=== PATIENT | female | born 1940 | race Caucasian/White ===

== ENCOUNTER → 2016-10-29 | Outpatient (CLI) | payer OTHER, MEDICARE | LOC: FIMAGING 11:41 | PROVIDERS: ATTEND Physician Assistant Surgical | DX: M51.36 Other intervertebral disc degeneration, lumbar region (principal); Z98.1 Arthrodesis status ==

== ENCOUNTER 2017-04-14 16:03 | Observation (INO) | payer OTHER, MEDICARE ==
--- NOTE | 2017-04-14 16:39 | EDPHY ---
H & P Stated Complaint: Epiastric pain/pressure earlier today,resolved now. BP elevated Time Seen by Provider: 04/14/17 16:39 HPI/ROS: HPI: This is a 77-year-old female presents with Chief Complaint: Epigastric pain/pressure earlier today,resolved now. BP elevated Location: Epigastric Quality: Burning pain Duration: Lasted approximately 2-3 hours Signs and Symptoms: No fever, no cough, no shortness of breath, no wheezing, no palpitations, no lower extremity swelling,+ indigestion, no radiation of pain Timing: Acute onset, self resolved without intervention Severity: Moderate Context: Patient has a history of GERD for which she takes Pepcid twice daily for the last 5 years and celiac disease presents with sudden onset of epigastric burning pain that is nonradiating in nature that lasted approximately 2-3 hours and resolved after taking Tums. Symptoms accompanied by nausea. She ate approximately around 12 30 lunch consisting of a salad which is not abnormal for her. Patient had EGD greater than 10 years ago. Patient reports no prior cardiac history. She does not take aspirin daily. Her blood pressure normally runs low but was elevated at home during the epigastric pain episodes. Grandparents on both maternal and paternal sides had heart issues. She had an episode approximately 5 years ago where she was getting ready to ride her horse and had chest pain associated with nausea and dizziness. She was admitted to the hospital with nuclear stress test that was normal per patient. She has not followed up with Cardiology sent. Denies any hyperlipidemia. Denies any recent stressors. No recent heavy lifting/ exertion. History of Appendectomy, bilateral tubal ligation, vaginal hysterectomy. Modifying Factors: Tums complete relief Comment: ROS: see HPI Constitutional: No fever, no chills, no weight loss Eyes: No blurred vision Respiratory: No shortness of breath, no cough Cardiovascular: + chest pain Gastrointestinal: No nausea, no vomiting, no diarrhea Genitourinary: No dysuria Extremities: No myalgias Neurologic: No weakness, no numbness Skin: No rashes Hematologic: No bruising, no bleeding MEDICAL/SURGICAL/SOCIAL HISTORY: Medical history: Asthma, celiac, arthritis Surgical history: Appendectomy, bilateral tubal ligation, vaginal hysterectomy Social history: . CONSTITUTIONAL: Pleasant elderly white female, and friend at bedside, awake and alert, no obvious distress HEENT: Atraumatic and normocephalic, PERRL, EOMI. Tympanic membranes clear. Oropharynx clear, no exudate and moist pink mucosa. Airway patent. No lymphadenopathy. No meningismus. Cardiovascular: Normal S1/S2, regular rate, regular rhythm, without murmur rub or gallop. PULMONARY/CHEST: Symmetrical and nontender. Clear to auscultation bilaterally. Good air movement. No accessory muscle usage. ABDOMEN: Soft, nondistended, mild epigastric and right upper quadrant tenderness, no rebound, no guarding, no peritoneal signs, no masses or organomegaly. No CVAT. Bowel sounds heard all 4 quadrants. EXTREMITIES: 2/2 pulses, strength 5/5, no deformities, no clubbing, no cyanosis or edema. NEUROLOGICAL: no focal neuro deficits. GCS 15. SKIN: Warm and dry, no erythema. no rash. Good capillary refill. Source: Patient Exam Limitations: No limitations - Personal History Current Tetanus Diphtheria and Acellular Pertussis (TDAP): Yes Tetanus Vaccine Date: 2008 - Medical/Surgical History Hx Asthma: Yes Hx Chronic Respiratory Disease: No Hx Diabetes: No Hx Cardiac Disease: No Hx Renal Disease: No Hx Cirrhosis: No Hx Alcoholism: No Hx HIV/AIDS: No Hx Splenectomy or Spleen Trauma: No Other PMH: Asthma, celiac. arthritis - Social History Smoking Status: Former smoker Constitutional: Initial Vital Signs Temperature (C) 36.5 C 04/14/17 16:06 Heart Rate 84 04/14/17 16:06 Respiratory Rate 18 04/14/17 16:06 Blood Pressure 152/94 H 04/14/17 16:06 O2 Sat (%) 100 04/14/17 16:06 O2 Delivery Mode Room Air Allergies/Adverse Reactions: cefazolin sodium [From Ancef] Allergy (Verified 04/14/17 16:05) ITCHING,SWELLING AT IV SITE Cephalosporins Allergy (Verified 04/14/17 16:05) Unknown gluten Allergy (Verified 04/14/17 16:05) STOMACH CRAMPS/DIARRHEA/CONSTIPATION trazodone Allergy (Verified 04/14/17 16:05) NIGHTMARES Home Medications: Medication Instructions Recorded Albuterol Sulfate [Proventil Hfa] 1 - 2 puffs IH DAILY PRN 04/22/13 Estradiol [Estradiol 1 MG (*)] 1 mg PO DAILY06 04/22/13 Famotidine [Pepcid 20 MG (*)] 20 mg PO BID 04/22/13 Levothyroxine [Synthroid 50 mcg 50 mcg PO DAILY06 04/22/13 (*)] Nortriptyline HCl [Pamelor] 25 mg PO HS 04/22/13 PARoxetine HCL [Paxil 20mg (*)] 40 mg PO DAILY06 04/22/13 Polyethylene Glycol 3350 [Miralax 8 - 17 gm PO DAILY PRN 04/22/13 17 gm (*)] Solifenacin Succinate [Vesicare] 10 mg PO DAILY06 10/06/14 Zolpidem Tartrate [Ambien 10 mg] 5 - 10 mg PO HS PRN 10/06/14 Sennosides/Docusate Sodium 1 - 2 tab PO BID #60 tab 10/19/14 [Senokot-S] Medical Decision Making - Diagnostics EKG Interpretation: 12 lead EKG: Indication: Epigastric pain Rhythm: Normal sinus rhythm, rate 81 beats per minute [place]: Normal Intervals: Normal [place]: 1st degree AV block QRS: Normal ST segments: Normal T segments: Normal INTERPRETATION: PVC, no acute ischemic changes The 12 lead EKG was interpreted by myself and with attending Imaging Results: Imaging Impressions Abdomen Ultrasound 04/14/17 16:51 Impression: No cholelithiasis or biliary ductal dilation. Findings and recommendations discussed with Emergency Department physician, Laure Max at 18:04 hour, 04/14/2017. Final report concurs with initial preliminary interpretation. Chest X-Ray 04/14/17 16:51 Impression: 1. Possibly a subtle posterior basilar infiltrate, side indeterminate. 2. Vague new asymmetry right upper lobe, of uncertain clinical significance. If the patient receives a chest CT to exclude pneumonia, this can be evaluated at the same time. Chest/Thorax CTA 04/14/17 17:40 Impression: 1. No pulmonary embolic disease. 2. LAD coronary artery disease. 3. Possible left breast abnormality. The patient's last mammogram was February. Recommend bilateral diagnostic mammography and physical examination of the patient's upper left breast. Results called and discussed with Laure Max, at 04/14/2017 18:19 General information for patients regarding this examination can be found at [email or web address]. If you have questions or comments about this report, please contact me at (hospital) or [phone] ([facility]). ED Course/Re-evaluation: EKG, chest x-ray, right upper quadrant ultrasound, CTA chest, labs, oral medications ordered EKG showed no acute ischemic changes and troponin #1 negative Patient given 1 L normal saline, aspirin, GI cocktail upon arrival D-dimer 0.79; CTA chest ordered 180: called by Dr. Rossi, who advised right upper quadrant ultrasound shows no gallstones, cholecystitis, pancreatitis, aortic aneurysm, hydronephrosis. Liver is unremarkable. 1819: Called by radiologist CTA chest shows no pulmonary embolism. Does show prominent density in the left upper breast. Recommend diagnostic left breast mammography. Last 1 occurred on February 2016. Also seen was moderate coronary artery disease in the LAD. ED decision to consult for admission. Spoke with hospitalist, Dr. Lundy, regarding anginal equivalent chest pain, left breast mass like density. This patient was seen under the supervision of my secondary supervising physician. I evaluated care for this patient independently. Patient's presentation, labs/imaging, treatment and plan of care were discussed with secondary supervising physician. Differential Diagnosis: Chest pain including but not limited to myocardial ischemia, pulmonary embolus, peptic ulcer disease, GERD, chest wall pain, pleural inflammation and pulmonary infectious causes. - Data Points Laboratory Results: Laboratory Results 04/14/17 16:47 04/14/17 16:47 04/14/17 04/14/17 04/14/17 16:47 16:47 16:47 WBC 6.68 10^3/uL 10^3/uL (3.80-9.50) RBC 3.83 10^6/uL L 10^6/uL (4.18-5.33) Hgb 11.9 g/dL L g/dL (12.6-16.3) Hct 34.4 % L % (38.0-47.0) MCV 89.8 fL fL (81.5-99.8) MCH 31.1 pg pg (27.9-34.1) MCHC 34.6 g/dL g/dL (32.4-36.7) RDW 15.5 % H % (11.5-15.2) Plt Count 184 10^3/uL 10^3/uL (150-400) MPV 9.6 fL fL (8.7-11.7) Neut % (Auto) 69.9 % % (39.3-74.2) Lymph % (Auto) 18.3 % % (15.0-45.0) [place] % (Auto) 7.9 % % (4.5-13.0) Eos % (Auto) 3.0 % % (0.6-7.6) Baso % (Auto) 0.6 % % (0.3-1.7) Nucleat RBC Rel Count 0.0 % % (0.0-0.2) Absolute Neuts (auto) 4.67 10^3/uL 10^3/uL (1.70-6.50) Absolute Lymphs (auto) 1.22 10^3/uL 10^3/uL (1.00-3.00) Absolute Monos (auto) 0.53 10^3/uL 10^3/uL (0.30-0.80) Absolute Eos (auto) 0.20 10^3/uL 10^3/uL (0.03-0.40) Absolute Basos (auto) 0.04 10^3/uL 10^3/uL (0.02-0.10) Absolute Nucleated RBC 0.00 10^3/uL 10^3/uL (0-0.01) Immature Gran % 0.3 % % (0.0-1.1) Immature Gran # 0.02 10^3/uL 10^3/uL (0.00-0.10) D-Dimer 0.79 ug/mLFEU H ug/mLFEU (0.00-0.50) Sodium 133 mEq/L L mEq/L (134-144) Potassium 4.1 mEq/L mEq/L (3.5-5.2) Chloride 103 mEq/L mEq/L (97-110) Carbon Dioxide 19 mEq/l L mEq/l (22-31) Anion Gap 11 mEq/L mEq/L (8-16) BUN 14 mg/dL mg/dL (7-23) Creatinine 0.8 mg/dL mg/dL (0.6-1.0) Estimated GFR > 60 Glucose 97 mg/dL mg/dL (70-100) Calcium 8.7 mg/dL mg/dL (8.5-10.4) Magnesium 2.1 mg/dL mg/dL (1.6-2.3) Total Bilirubin 0.4 mg/dL mg/dL (0.1-1.4) Conjugated Bilirubin 0.2 mg/dL mg/dL (0.0-0.5) Unconjugated Bilirubin 0.2 mg/dL mg/dL (0.0-1.1) AST 44 IU/L IU/L (14-46) ALT 46 IU/L IU/L (9-52) Alkaline Phosphatase 65 IU/L IU/L (38-126) Troponin I < 0.012 ng/mL ng/mL (0.000-0.034) NT-Pro-B Natriuret Pep 217 pg/mL pg/mL (0-450) Total Protein 6.5 g/dL g/dL (6.3-8.2) Albumin 3.6 g/dL g/dL (3.5-5.0) Lipase 124 IU/L IU/L (23-300) Medications Given: Discontinued Medications Al Hydroxide/Mg Hydroxide (Maalox Susp) 30 ml PO ONCE ONE Stop: 04/14/17 16:51 Last Admin: 04/14/17 17:07 Dose: 30 ml Aspirin (Aspirin) 324 mg PO EDNOW ONE Stop: 04/14/17 16:51 Last Admin: 04/14/17 17:05 Dose: 324 mg Hyoscyamine Sulfate (Levsin, Hyomax-Sl) 0.25 mg PO ONCE ONE Stop: 04/14/17 16:51 Last Admin: 04/14/17 17:07 Dose: 0.25 mg Sodium Chloride (Ns) 1,000 mls @ 0 mls/hr IV EDNOW ONE; Wide Open PRN Reason: Protocol Stop: 04/14/17 16:51 Last Admin: 04/14/17 17:18 Dose: 1,000 mls Lidocaine (Lidocaine 2% Viscous) 15 ml PO ONCE ONE Stop: 04/14/17 16:51 Last Admin: 04/14/17 17:07 Dose: 15 ml Departure - Departure Disposition: [facility] Inpatient Acute Clinical Impression: Anginal chest pain at rest, Left breast mass
--- NOTE | 2017-04-14 16:45 | CPEKG ---
Heart Rate: 81 RR Interval: 741 P-R Interval: 220 QRSD Interval: 76 QT Interval: 396 QTC Interval: 460 P [place]: 43 QRS [place]: 8 T Wave [place]: 54 EKG Severity - ABNORMAL ECG - EKG Impression: SINUS RHYTHM EKG Impression: VENTRICULAR PREMATURE COMPLEX EKG Impression: FIRST DEGREE AV BLOCK Preliminary Awaiting MD Review
[2017-04-14] MEDS ORDERED: ASPIRIN 81 MG CHEWABLE TAB PO ONE (16:50)
[2017-04-14] MEDS ORDERED: NS 1,000 ML IV ONE (16:50)
[2017-04-14] MEDS ORDERED: HYOSCYAMINE SULFATE 0.125 MG TAB PO ONE (16:50)
[2017-04-14] MEDS ORDERED: MAG HYDROX/AL HYDROX/SIMETH 30 ML UDCUP PO ONE (16:50)
[2017-04-14] MEDS ORDERED: LIDOCAINE 2% VISCOUS 15 ML UDCUP PO ONE (16:50)
[2017-04-14 17:00] LABS: % IMMATURE GRANULYOCYTES 0.3 % (0.0-1.1); ABSOLUTE IMMATURE GRANULOCYTES 0.02 10^3/uL (0.00-0.10); ADD DIFF? NO; ADD MORPH? NO; ADD SCAN? NO; ATYPICAL LYMPHOCYTE FLAG 20 (0-99); FRAGMENT RBC FLAG 0 (0-99); HEMATOCRIT 34.4 % (38.0-47.0); HEMOGLOBIN 11.9 g/dL (12.6-16.3); LEFT SHIFT FLG 0 (0-99); LIPEMIA HEMOLYSIS FLAG 90 (0-99); MEAN CELL HEMOGLOBIN 31.1 pg (27.9-34.1); MEAN CELL HEMOGLOBIN CONCENTR. 34.6 g/dL (32.4-36.7); MEAN CELL VOLUME 89.8 fL (81.5-99.8); MEAN PLATELET VOLUME 9.6 fL (8.7-11.7); PLATELET CLUMPS FLAG 0 (0-99); PLATELET COUNT 184 10^3/uL (150-400); RED BLOOD CELL COUNT 3.83 10^6/uL (4.18-5.33); RED CELL DISTRIBUTION WIDTH 15.5 % (11.5-15.2)
[2017-04-14] MEDS ORDERED: HYOSCYAMINE SULFATE 0.125 MG TAB ONE (17:11)
[2017-04-14 17:21] LABS: ALANINE AMINOTRANSFERASE 46 IU/L (9-52); ALBUMIN 3.6 g/dL (3.5-5.0); ALKALINE PHOSPHATASE 65 IU/L (38-126); ANION GAP 11 mEq/L (8-16); ASPARTATE AMINOTRANSFERASE 44 IU/L (14-46); BILIRUBIN,TOTAL 0.4 mg/dL (0.1-1.4); BILIRUBIN-CONJUGATED 0.2 mg/dL (0.0-0.5); BILIRUBIN-UNCONJUGATED 0.2 mg/dL (0.0-1.1); CALCIUM 8.7 mg/dL (8.5-10.4); CARBON DIOXIDE 19 mEq/l (22-31); CHLORIDE 103 mEq/L (97-110); CREATININE 0.8 mg/dL (0.6-1.0); GLOMERULAR FILTRATION RATE > 60; GLUCOSE 97 mg/dL (70-100); MAGNESIUM 2.1 mg/dL (1.6-2.3); POTASSIUM 4.1 mEq/L (3.5-5.2); SODIUM 133 mEq/L (134-144); TOTAL PROTEIN 6.5 g/dL (6.3-8.2)
[2017-04-14 17:30] LABS: TROPONIN I < 0.012 ng/mL (0.000-0.034)
[2017-04-14] MEDS ORDERED: IOPAMIDOL (ISOVUE 370) 100 ML BTL IV ONE (17:43)
[2017-04-14 18:27] VITALS: RESP 16
[2017-04-14] MEDS ORDERED: ACETAMINOPHEN 325 MG TAB PO PRN (18:53)
[2017-04-14] MEDS ORDERED: ONDANSETRON 4 MG/2 ML VIAL IVP PRN (18:53)
[2017-04-14] MEDS ORDERED: ONDANSETRON DISINTEGRATING 4 MG TAB PO PRN (18:53)
[2017-04-14] MEDS ORDERED: CALCIUM CARBONATE 500 MG CHEWABLE TAB PO PRN (20:24)
--- NOTE | 2017-04-14 21:04 | GHP ---
[f rep st] HISTORY AND PHYSICAL DATE OF ADMISSION: 04/14/2017 CHIEF COMPLAINT: Indigestion, concern for anginal equivalent. HISTORY OF PRESENT ILLNESS: A very pleasant 77-year-old female, with history of Raynaud, celiac disease, depression, and asthma, who presented with sudden onset of indigestion this afternoon. She ate a salad for lunch, and at approximately 1 p.m. had indigestion in her epigastrium with extreme pressure and burning sensation. She took 2 Tums and laid down. The pain was still persistent. She did feel short of breath and mildly nauseated with the increased pressure. She was very gassy. This pain resolved by 4:30, when she arrived at the emergency room. She denies any associated radiation, diaphoresis , or numbness in her hands. She does have baseline tingling intermittently due to Raynaud's. She is currently pain free. She does an exercise, 2 classes a day, that includes brisk walking, working with bands. She also does horse riding. She does not experience chest pain or shortness of breath with the exercise. She does intermittently get shortness of breath with horse riding, but this is not new. Denies PND, or pillow orthopnea, or lower extremity edema. She states she had a nuclear stress test 5-6 years ago here at [facility]. I have tried to find it on Jose, but could not find results of that test. During the pain episode, her took her blood pressure and he said her systolic was elevated to 180, and it is normally 120. They repeated that and it was not lower. REVIEW OF SYSTEMS: I completed a 10-point review of systems, negative except as noted in HPI. PAST MEDICAL HISTORY: Asthma, hypothyroidism, depression, Raynaud's, celiac disease, arthritis. PAST SURGICAL HISTORY: Hand surgeries, right shoulder surgery, right TKA, pessary, lumbar fusion. SOCIAL HISTORY: Lives in [place] with her . She smoked 20 years, 1-2 packs a day, quit in 1979. No alcohol or illicits. FAMILY HISTORY: Paternal and maternal grandmothers with an RI. ALLERGIES: Cefazolin, cephalosporins, gluten, trazodone. HOME MEDICATIONS: Ambien 10 mg p.r.n., senna p.r.n., MiraLAX p.r.n., paroxetine 40 mg daily, nortriptyline 25 mg q.h.s., Synthroid 50 mcg daily, famotidine 20 mg b.i.d., estradiol 1 mg p.o. daily, albuterol p.r.n., VESIcare. PHYSICAL EXAMINATION: VITAL SIGNS: Temperature 36.6 blood pressure 159/93, heart rate is 80s, respirations 16, 98% on room air. GENERAL: Sitting up, smiling, in no acute distress. HEENT: PERRLA. EOMI. Oropharynx clear. CV: Regular rate and rhythm with occasional extra beats. No peripheral edema. LUNGS: Clear. No crackles or wheezing. ABDOMEN: Soft, nontender, nondistended. Positive bowel sounds. : No suprapubic tenderness. MUSCULOSKELETAL: 5/5 upper and lower extremity strength. NEUROLOGIC: 2 through 12 intact. PSYCHIATRIC: Alert and oriented x3. LABORATORY DATA: WBC 6, hemoglobin 11, hematocrit 34, platelets 184. Sodium 133, potassium 4.1, chloride 103, carbon dioxide 19, BUN 14, creatinine 0.8, glucose 97. LFTs within normal. Troponin less than 0.012. BNP is 217, lipase 124. Chest x-ray is personally reviewed by me, no overt opacity or edema. CTA: No PE. LAD coronary disease. Possible left breast abnormality. There is a prominent asymmetrical parenchymal density in the left breast. Abdominal ultrasound: No stones. EKG is personally reviewed by me, normal sinus rhythm with PVCs. ASSESSMENT/PLAN: 1. Acute indigestion, concern for possible anginal equivalent: currently chest pain free. Normally exercises without similar symptoms. A CTA was negative for pulmonary embolus, but showed LAD disease. Monitor on telemetry and repeat troponin. Patient would benefit from stress testing; however, she would like to do this as an outpatient if labs remain normal. Check A1c and lipids. 2. Hypothyroidism: On levothyroxine. 3. Asthma: P.r.n. albuterol. 4. Arthritis. Resume home medications. 5. Depression: Paxil and nortriptyline. 6. Diet: Cardiac. 7. Deep venous thrombosis prophylaxis: Lovenox. 8. Patient warrants observation admission given possible acute coronary syndrome equivalent requiring telemetry, repeat troponin. /[id number]/MODL MTDD
[2017-04-15 04:44] LABS: ANION GAP 8 mEq/L (8-16); CALCIUM 8.7 mg/dL (8.5-10.4); CARBON DIOXIDE 24 mEq/l (22-31); CHLORIDE 108 mEq/L (97-110); CHOLESTEROL 182 mg/dL (140-220); CHOLESTEROL/HDL RATIO 2.94 RATIO (1.00-4.44); CREATININE 0.8 mg/dL (0.6-1.0); GLOMERULAR FILTRATION RATE > 60; GLUCOSE 84 mg/dL (70-100); HIGH DENSITY LIPOPROTEIN 62 mg/dL (40-85); LOW DENSITY LIPOPROTEIN 99 mg/dL (80-100); NON-HIGH DENSITY LIPOPROTEIN 120 mg/dL (90-129); POTASSIUM 5.1 mEq/L (3.5-5.2); SODIUM 140 mEq/L (134-144); TRIGLYCERIDE 108 mg/dL (35-135); VERY LOW DENSITY LIPOPROTEINS 21 mg/dL (8-25)
[2017-04-15 07:55] VITALS: BP 138/88; PULSE 87; TEMP 98.2; O2SAT 95
[2017-04-15] MEDS ORDERED: ALBUTEROL INH PREPACK MDI TAKEHOME PRN (08:47)
[2017-04-15] MEDS ORDERED: ALBUTEROL 200 PUFFS/18 GM MDI IH PRN ×2 (08:55→09:00)
[2017-04-15] MEDS ORDERED: NON-FORMULARY NEW DRUG (Solifenacin Succinate [Vesicare] 10 MG) PO SCH (09:00)
[2017-04-15] MEDS ORDERED: ENOXAPARIN 40 MG/0.4 ML SYR SC SCH (09:00)
[2017-04-15] MEDS ORDERED: FAMOTIDINE 20 MG TAB PO SCH (09:00)
[2017-04-15] MEDS ORDERED: FLUTICASONE/SALMETER 250/50MCG DISKUS IH SCH (09:00)
[2017-04-15] MEDS ORDERED: LEVOTHYROXINE 50 MCG TAB PO SCH (09:00)
[2017-04-15] MEDS ORDERED: SOLIFENACIN SUCCINATE 5 MG TAB PO SCH (09:00)
[2017-04-15] MEDS ORDERED: FLUTICASONE NASAL 120 SPRAYS/16 GM MDI EACHNARE SCH (09:00)
[2017-04-15] MEDS ORDERED: PARoxetine HCL 20 MG TAB PO SCH (09:00)
[2017-04-15] MEDS ORDERED: SENNOSIDES/DOCUSATE SODIUM TAB PO SCH (09:00)
--- NOTE | 2017-04-15 09:01 | CPEKG ---
Heart Rate: 82 RR Interval: 732 P-R Interval: 200 QRSD Interval: 68 QT Interval: 376 QTC Interval: 439 P [place]: 62 QRS [place]: 46 T Wave [place]: 60 EKG Severity - BORDERLINE ECG - EKG Impression: SINUS RHYTHM EKG Impression: VENTRICULAR PREMATURE COMPLEX EKG Impression: BORDERLINE R WAVE PROGRESSION, ANTERIOR LEADS Electronically Signed By: Helio Cam 16-Apr-2017 23:06:23
[2017-04-15 10:25] LABS: HEMOGLOBIN A1C 5.6 % (4.0-6.0)
--- NOTE | 2017-04-15 11:26 | GDS ---
[f rep st] DISCHARGE SUMMARY DIAGNOSES: 1. Epigastric and chest pain, resolved. 2. Coronary calcifications noted in the LAD on her CT angiogram. 3. Asthma. 4. Hypothyroidism. 5. Depression. 6. Raynaud disease. 7. Celiac disease. 8. Arthritis. PROCEDURES DONE: 1. CT angiogram of the chest: LAD coronary artery disease, possible left breast abnormality. Recom mend bilateral diagnostic mammography and physical exam of the patient's upper left breast as an outp atient. 2. Abdominal ultrasound: No cholelithiasis. HOSPITAL COURSE: The patient is a 77-year-old who was admitted with severe epigastric and chest pain . She said she ate a big salad for lunch yesterday, and soon after eating, she started noting increa sing discomfort in her epigastric area that moved up into her central chest. This lasted for several hours before she went to the emergency department, and when she got there, the pain dispersed withou t clear treatment. She did try some antacids without clear improvement at home. [facility], and her troponins were negative. EKGs were stable and unremarkable for ischemia. She had a CT angiogram done, which did show some coronary artery calcifications in the LAD, no pulmonary embol us, and an abnormal area in her breast. They recommend followup with her primary care provider and a n order for mammogram to be done as an outpatient. The next morning, her telemetry was unremarkable. EKG was stable, and her serial troponins have remained negative. She does not wish to pursue any r isk stratification here in the hospital, but would prefer to go home and do an outpatient stress test . That was set up through [facility]. She will have her nuclear stress test done in [place] on April 29 at 1:15. DISCHARGE MEDICATIONS: Please see discharge medication form. FOLLOWUP: She should follow up with Dr. Leahy this week for a breast exam and followup of her chest pain. Total time spent with patient on day of discharge and coordination of care is 35 minutes. /[id number]/MODL
--- NOTE | 2017-04-15 14:10 | ASDISCHSUM ---
Discharge Information Plan Status:Home with No Needs Medically Cleared to Leave:04/14/2017 Discharge Date:04/15/2017 11:37 AM CM D/C Disposition:Home, Routine, Self-Care ADT D/C Disposition:Home, Routine, Self-Care Projected Discharge Date:04/15/2017 11:37 AM Transportation at D/C:Family Discharge Delay Reason: Follow-Up Date:04/15/2017 11:37 AM Discharge Slot: Final Diagnosis: Placement Information Patient Contact Information Contact Name:BETY Relationship: Address:[address] [place] Alternate Phone: State/Zip Code:[place] [address] Email: Financial Information Financial Class: Primary Plan Desc:MEDICARE OUTPATIENT Primary Plan Number:[id number] Secondary Plan Desc:[employer]/M[employer] SUPPLEMENT Secondary Plan Number:[id number] Assessment Information Intervention Information Intervention Type:*KHALIL-Signed Date of Service:04/15/2017 09:46 AM Patient Type:Observation Staff Member:Loulou Crews Hours: Discipline: Severity: Comment:
[2017-04-15] MEDS ORDERED: NORTRIPTYLINE HCL 25 MG CAP PO SCH (21:00)
[2017-04-16] MEDS ORDERED: ESTRADIOL 1 MG TAB PO SCH (06:00)
== END 2017-04-15 11:37 | disposition home or self-care (01) ==
LOC: F2W 19:37
PROVIDERS: ADMIT Internal Medicine; ATTEND Internal Medicine
DX: R10.13 Epigastric pain (principal); I25.10 Atherosclerotic heart disease of native coronary artery without angina pectoris; J45.909 Unspecified asthma, uncomplicated; E03.9 Hypothyroidism, unspecified; F32.9 Major depressive disorder, single episode, unspecified; I73.00 Raynaud's syndrome without gangrene; K90.0 Celiac disease; M19.90 Unspecified osteoarthritis, unspecified site; Z87.891 Personal history of nicotine dependence
CPT/HCPCS: 71020; 71275; 76705; 93005; G0378; Q9967

== ENCOUNTER → 2017-04-23 | Outpatient (CLI) | payer OTHER, MEDICARE | LOC: FIMAGING 11:32 | PROVIDERS: ATTEND Internal Medicine | DX: R92.8 Other abnormal and inconclusive findings on diagnostic imaging of breast (principal) | CPT/HCPCS: G0204 ==

== ENCOUNTER → 2017-05-15 | Outpatient (CLI) | payer OTHER, MEDICARE | LOC: BHLMT 08:30 | PROVIDERS: ATTEND Internal Medicine Cardiovascular Disease | DX: I25.10 Atherosclerotic heart disease of native coronary artery without angina pectoris (principal); R07.2 Precordial pain | CPT/HCPCS: 78452; 93017; A9500; J2785 ==

== ENCOUNTER → 2017-09-16 | Outpatient (CLI) | payer OTHER, MEDICARE | LOC: FIMAGING 16:43 | PROVIDERS: ATTEND Nurse Practitioner Adult Health | DX: M25.522 Pain in left elbow (principal); M25.422 Effusion, left elbow ==

== ENCOUNTER → 2018-06-29 | Outpatient (CLI) | payer OTHER, MEDICARE | LOC: FIMAGING 13:15 | PROVIDERS: ATTEND Internal Medicine | DX: Z12.31 Encounter for screening mammogram for malignant neoplasm of breast (principal); Z98.890 Other specified postprocedural states ==

== ENCOUNTER → 2018-08-20 | Outpatient (CLI) | payer OTHER, MEDICARE | LOC: FIMAGING 15:39 | PROVIDERS: ATTEND Nurse Practitioner Adult Health | DX: R05 Cough (principal); R50.9 Fever, unspecified ==